=== PATIENT | female | born 1965 | race Caucasian/White ===

== ENCOUNTER 2016-04-06 11:52 | Day surgery (SDC) | payer OTHER ==
[~2016-04-06] VITALS: Ht 180.3 cm; Wt 125.0 kg
[~2016-04-06 11:52] MED LIST: BPR100TCR PO; HYDR25TA4 PO; IBUP200T48 PO; IMI100 PO; METH750T PO; POLY1PAC PO; PRE625 PO; ProAirHFA INH; Sodium Chloride LOK Flush 10 mL Syringe IV PRN; VICODIN 5-3251 EACH PO; fentaNYL-PF 50 mCg/mL 2 mL Inj IVPUSH PRN
[2016-04-06 13:19] VITALS: BP 126/82; PULSE 76; RESP 16; O2SAT 97
[2016-04-06] MEDS ORDERED: HYDR-3090 PO (13:25)
[2016-04-06] MEDS ORDERED: METH-313 PO (13:25)
[2016-04-06] MEDS ORDERED: ESTR1PAT95 TD (13:25)
[2016-04-06] MEDS ORDERED: HYDR25TA4 PO (13:25)
[2016-04-06] MEDS ORDERED: BUPR100T15 PO (13:25)
[2016-04-06] MEDS ORDERED: ALBU8.5H2 INHALATION (13:25)
[2016-04-06] MEDS: 0.9% Sodium Chloride 1,000 ML IV SCH ×2 (13:59→14:28)
--- NOTE | 2016-04-06 14:17 | PCM.ENDEGD ---
EGD Date of Service: Apr 06, 2016 Physician Gregorio Jo MD Indication for Procedure Reflux Post Procedure Dx & Findings: Healing esophageal ulcer and gastritis. Procedure Esophagogastroduodenoscopy PROCEDURE IN DETAIL: The patient was placed in left lateral decubitus position. Bite block was placed. Scope lubricated, placed in posterior pharynx, passed through the cricopharyngeus and esophagus, slowly advanced the entire length of the gastric pouch, pylorus was identified, scope passed through the pylorus and descending portion of duodenum, withdrawn in the antrum, retroflexed upon itself for view of fundus and cardia. Scope was then withdrawn through the oropharynx. Esophagus unremarkable until we saw the Z line at 41 cm. 1 cm area of mild scarring and minimal redness which appears to be a healing ulcer. Biopsy obtained using cold forceps. We advanced into the stomach retroflexion was done. Stomach was easily inflatable and deflated wheezing air. Patient had linear irritations inflammation with redness and edema in the antrum. Sampling biopsies obtained using cold forceps. Duodenum appeared normal with normal villous structures with normal appearing folds. The distal part of the duodenum. Impression Esophageal ulcer status post biopsy Linear gastric irritation consistent with gastritis Recommendation Continue PPI as prescribed Avoid NSAIDs Presedation Assessment Risks and Benefits Informed consent was obtained from the patient after all risks and benefits including but not limited to drug reaction, infection, pain, bleeding, perforation, as well as alternatives were discussed. Patient monitoring Continuous pulse oximetry, cardiac monitoring, blood pressure monitoring, IV access, and oxygen at 2L per nasal cannula. Periprocedural Fentanyl: Fentanyl 150mcg Incrementally Midazolam: Midazolam 7mg Incrementally Diphenhydramine: Diphenhydramine 25 mg IV Complications There were no periprocedural complications identified. Post Procedure Plan Post Procedure Recommendations 1. Restrict activities today. 2. Resume normal activities in the morning. 3. Resume medications. 4. GERD behavioral modification: - Avoid fatty, acidic, spicy, large meals - Do not lie down after meals - Do not eat or drink anything for at least 2 1/2 hours before going to bed at night - Discontinue tobacco and alcohol - Decrease or avoid caffeine - Avoid chocolate and mints - Decrease weight - Avoid aspirin and non steroidal anti-inflammatory agents (NSAID) such as Aleve, Advil, Mobic, Naproxen, Ibuprofen, etc 5. Add proton pump inhibitor. Take 30 minutes before 1st meal of the day. 6. Patient informed of normal post procedure side effects as bloating, drowsiness, blood streaking in the stool 7. If gastric biopsy reveal H.pylori, continue with appropriate treatment 8. If small bowel biopsy reveals celiac, continue with appropriate treatment 9. Please don't hesitate to call me with any questions Gregorio Jo MD Apr 06, 2016 14:17
--- NOTE | 2016-04-06 14:40 | PCM.ENDCOL ---
Colonoscopy Date of Service: Apr 06, 2016 Physician Gregorio Jo MD Indication for Procedure Screening Post Procedure Dx & Findings: Polyp hemorrhoids Procedure Colonoscopy Prep adequate Withdrawal 14 minutes PROCEDURE IN DETAIL: After unremarkable rectal examination Olympus video colonoscope was inserted patient's anal canal was advanced the cecum. Landmarks were identified including the ileocecal valve and appendiceal orifice. Scope was withdrawn systematically. The mucosa of the cecum, ascending, transverse, descending, sigmoid, rectal mucosa lined with whitish, pink, smooth, glistening, normal-appearing mucosa, normal fine branching, underlying vascularity, normal haustra. The patient tolerated procedure and was transported to observation area. In the proximal ascending colon, there was a 2 mm polyp which was resected completely using cold snare. In the rectum retroflexion was done which showed hemorrhoids and a canal was inspected carefully in the way out and mild hemorrhoids noted. Impression Polyp 1 status post complete removal Hemorrhoids Recommendation Repeat colonoscopy 5 years. Presedation Assessment Risks and Benefits Informed consent was obtained from the patient after all risks and benefits including but not limited to drug reaction, infection, pain, bleeding, perforation, as well as alternatives were discussed. Patient monitoring Continuous pulse oximetry, cardiac monitoring, blood pressure monitoring, IV access, and oxygen at 2L per nasal cannula. Periprocedural Fentanyl: Fentanyl 25mcg Midazolam: Midazolam 1mg Incrementally Diphenhydramine: Diphenhydramine 25 mg IV Complications There were no periprocedural complications identified. Post Procedure Plan Post Procedure Recommendations 1. Restrict activities today. 2. Resume normal activities in the morning. 3. Resume medications. 4. Patient informed of normal post procedure side effects as bloating, drowsiness, blood streaking in the stool. 5. average risk CRCS. If colon polyps come back as: -Hyperplastic- can repeat colonoscopy in 10 years -Tubular adenoma- repeat colonoscopy in 5 years -Tubulovillous/villous adenoma- repeat colonoscopy in 3 years -If any dysplasia- return to clinic as soon as possible 6. Please don't hesitate to call me with any questions. Gregorio Jo MD Apr 06, 2016 14:40
[2016-04-06 14:43] VITALS: BP 128/74; PULSE 71; RESP 16; O2SAT 96
[2016-04-06 14:53] VITALS: BP 128/73; PULSE 75; RESP 16; O2SAT 98
[2016-04-06 15:03] VITALS: BP 112/69; PULSE 70; RESP 16; O2SAT 97
--- NOTE | 2016-04-08 10:56 | PATH ---
SURGICAL PATHOLOGY Attending Physician:Gregorio Jo M.D. CASE STATUS: Signed Out PATIENT NAME: SAUD MORALES PID: [id number] : 1965 DATE COLLECTED:04/06/2016 00:00 SPECIMEN: 1: Gastric, Biopsy 2: Esophagus, Biopsy 3: Colon, Biopsy CLINICAL HISTORY: 1). GASTRIC BIOPSY 2). GE JUNCTION BIOPSY 3). DESCENDING COLON POLYP FINAL DIAGNOSIS: 1. Gastric Biopsy: Mild chronic gastritis involving antral mucosa. Negative for evidence of Helicobacter. Negative for intestinal metaplasia. Negative for dysplasia and malignancy. 2. Gastroesophageal Junction Biopsy: Squamous mucosa and gastric cardia-type mucosa negative for specialized metaplasia of White's type esophagus. Negative for dysplasia and malignancy. Eosinophils are not increased. 3. Descending Colon Polyp: Changes consistent with small hyperplastic polyp. ICD10 K29.70 GROSS DESCRIPTION: The specimen is received in three formalin filled containers labeled with the patient's name. 1). The specimen is sublabeled "gastric" and consists of 2 portions of tissue which aggregate to 0.3 x 0.3 x 0.2 CM. The specimen is entirely submitted in cassette 1A. 2). The specimen is sublabeled "GE junction" and consists of a 0.4 x 0.3 x 0.2 CM portion of tissue which is entirely submitted in cassette 2A. 3). The specimen is sublabeled "descending colon polyp" are 2 portions of tissue which aggregate to 0.3 x 0.2 x 0.2 CM. The specimen is entirely submitted in cassettes 3A. 04/07/2016 [facility] ICD-9 CODES: CPT CODES: 1: 19085 2: 41165 3: 29754 Electronically Signed Out Jono Chandra MD [facility] [place] [address] Technical component performed at [facility], [facility] [address], [place], [address]
== END 2016-04-06 23:59 | disposition home or self-care (01) ==
LOC: END 11:52
PROVIDERS: ATTEND Internal Medicine
DX: Z12.11 Encounter for screening for malignant neoplasm of colon (principal); Z86.010 Personal history of colon polyps; K63.5 Polyp of colon; K21.9 Gastro-esophageal reflux disease without esophagitis; K64.9 Unspecified hemorrhoids; K29.50 Unspecified chronic gastritis without bleeding; K22.10 Ulcer of esophagus without bleeding
CPT/HCPCS: 43239; 45385; 88305; 99153; G0500; J1200; J2250; J3010; J7030

== ENCOUNTER 2016-09-28 19:21 | Emergency (ER) | payer OTHER ==
[~2016-09-28] VITALS: Ht 180.3 cm; Wt 129.5 kg
[~2016-09-28 19:21] MED LIST changes: +ALBU8.5H2 INHALATION; -BPR100TCR PO; +BUPR100T15 PO; +ESTR1PAT95 TD; +HYDR-3090 PO; -IBUP200T48 PO; -IMI100 PO; +METH-313 PO; -METH750T PO; -PRE625 PO; -ProAirHFA INH; -Sodium Chloride LOK Flush 10 mL Syringe IV PRN; -VICODIN 5-3251 EACH PO; -fentaNYL-PF 50 mCg/mL 2 mL Inj IVPUSH PRN
[2016-09-28 19:38] VITALS: BP 160/99; PULSE 77; RESP 17; O2SAT 99
--- NOTE | 2016-09-28 21:43 | ED.REPORT ---
HPI-Headache Date of Service Sep 28, 2016 ED Provider: Nito Colindres MD Pt is a generally healthy 51 y/o female w/ a distant hx of migraines presenting to the ED c/o bilateral temporal intermittent ARAMBULA sudden onset 4 days ago. This is the worst headache of her life but at time of interview she is only experiencing a mild dull ache. Her pain seems to be relieved by relaxation. She c/o associated dizziness, neck pain. Pt denies recent trauma, vomiting, fever, chills, any other neurological symptoms. Her headache is not similar to previous migraines. She was seen at Urgent Care and sent here to rule out SAH. Nursing Notes Stated Complaint: HEADACHE Chief Complaint: Headache Nursing Notes Reviewed: Yes Allergies: Coded Allergies: No Known Allergies (Verified , 09/28/16) Scheduled Albuterol HFA (Proair HFA) 8.5 Gm Hfa.aer.ad 2 PUFFS INHALATION Q4H Bupropion (Bupropion) 100 Mg Tablet 100 MG PO DAILY Hydrochlorothiazide (Hydrochlorothiazide) 25 Mg Tablet 25 MG PO DAILY Scheduled PRN Hydrocodone-Acetaminophen 5-300 mg (Hydrocodone-Acetaminophen 5-300 mg) 1 Each Tablet 1 TABLET PO Q4H PRN PRN For Pain PEG 3350-Expunged Drug, Do Not Renew! (MIRALAX-Expunged Drug, Do Not Renew!) 17 Gm/Pkt Packet 17 GM PO DAILY PRN PRN Miscellaneous Medications Estradiol (Estradiol) 0.05 Mg/24 Hour Patch.tdsw 1 EACH TD Methocarbamol (Robaxin-750) 750 Mg Tablet 750 MG PO General Time Seen by MD: 21:32 Chief Complaint Headache Hx Obtained From: Patient Arrived By: Walk-in Sudden in Onset?: Yes Onset Occurred: 4 days ago Symptom Duration: Since onset Location: : Temporal bilateral Quality: Painful Severity: Current: Mild Severity: Maximum: Severe Recent Healthcare: Recent doctor visit Similar Sx Previous: No Past Medical History Past Medical History Distant hx of migraines Past Surgical History Hysterectomy Smoking History Never Smoker Ambulatory Status Independent Review of Systems Constitutional: Denies: Chills, Fever GI: Denies: Vomiting Musculoskeletal: Reports: Neck pain Neurologic: Reports: Dizziness, Headache, Denies: Abnormal movement, Bladder dysfunction, Bowel dysfunction, Change LOC , Confusion, Focal weakness, Lightheaded, Numbness, Problem walking, Seizure, Shaking, Slurred speech, Spinning sensation, Syncope, Unable to speak, Vision change, Weakness Complete sys rev & neg: except as marked. Physical Exam Initial Vital Signs Vital Signs (First) Date Time Temp Pulse Resp B/P Pulse Ox O2 Delivery O2 Flow Rate FiO2 09/28/16 19:38 36.6 77 17 160/99 99 Room Air Initial VS: Reviewed, Vital signs abnormal ENT: Mucous membranes moist, Conjunctiva normal, No scleral icterus Respiratory: Breath sounds normal, Clear to auscultation, No respiratory distress Cardiovascular: Regular rate & rhythm, Heart sounds normal, Intact distal pulses Abdomen / GI: Soft, Non-tender Extremities: Vascular intact, Neuro intact, No swelling, No tenderness Skin: Warm, Dry, No cyanosis Psychiatric: Mood/affect normal, Behavior normal, Normal thought content General/Constitutional: Awake, Alert, No acute distress, Well appearing, Cooperative, Not toxic appearing Appearance / Presentation: Positive: Obese Head / Eyes: Atraumatic, Normocephalic, PERRL, EOMI Neck: Atraumatic, Supple, No meningismus, Full range of motion Meningeal Signs / ROM: Negative: Brudzinski's positive, Kernig's positive, Nuchal rigidity present Neurologic: Oriented X3, Speech NL, No motor deficits, No sensory deficits, CN II - XII intact, Cerebellar NL, Memory NL Re-Eval/Medical Decision Med Decision/Clinical Course 51-year-old female presenting with headache 4 days. Fluctuating intensity. History of migraines in the past but none for 12 years. No other associated symptoms. She has no signs of meningitis. No meningeal signs symptoms. Vital signs are stable. No focal neuro deficits. Her CT scan shows no acute pathology. Do not suspect meningitis as above. No focal neuro deficits. Her pain improved with Toradol. Likely with migraine headache. No meningeal signs or symptoms, normal CT head and resolution with Toradol did not seem indication for lumbar puncture at this time. Patient was discharged home with return precautions if any new or worsening headache, visual changes, weakness numbness tingling, any other new or worsening symptoms. Re-Evaluation/Progress : Time of Eval: 22:49 Re-Evaluation/Progress Note: Pt rechecked. Informed pt of plan for treatment. Pt understands and agrees with plan for treatment. F/U instructions and RTER warnings given. All questions addressed. Counseled Regarding: Diagnosis, Lab results, Need for follow-up, When/why to return to ED Discharge & Departure Impression: Primary Impression: Headache Headache type: unspecified Headache chronicity pattern: acute headache Intractability: not intractable Qualified Code: R51 - Headache Disposition: Home Discharge Condition All VS Reviewed: Yes Condition: Improved Patient Instructions: Acute Headache (ED) Additional Instructions: The CT scan today was normal. There was no sign of bleeding in the brain. The cause of your headache is uncertain but is not immediately dangerous. Your exam is reassuring. Return to the emergency department if you experience persistent severe headache , vomiting, fever, severe neck stiffness, confusion or altered mental status, vision changes, speech changes, or for other concerning signs or symptoms. Follow-up with your primary care doctor in 2-3 days for a recheck. Referrals: Teresa Baumann MD (PCP) Yann Attestation Portions of this note were transcribed by Nitin Baltazar. I, Dr. Colindres personally performed the history, physical exam and medical decision-making; I reviewed and confirmed the accuracy of the information in the transcribed note. Signed by Yann Lira, 09/28/16 - 0 copies to: Teresa Baumann MD, Ben M MD Sep 28, 2016 21:43 NITIN BALTAZAR Sep 28, 2016 21:44
[2016-09-28 23:38] VITALS: BP 118/75; PULSE 66; RESP 16; O2SAT 96
[2016-09-28 23:55] VITALS: BP 118/75; PULSE 66; RESP 16; O2SAT 96
--- NOTE | 2016-09-29 07:20 | DRSVH ---
PROCEDURE: CT BRAIN WITHOUT CONTRAST ([id number]) INDICATIONS: headache TECHNIQUE: Noncontrast 4.5 mm thick angled axial sections acquired from the foramen magnum to the vertex, with c oronal reformats. COMPARISON: None. FINDINGS: Image quality: Good CSF spaces: Basal cisterns are patent. No extra-axial fluid collections. Ventricles are normal in size and shape. Brain: No midline shift. No intracranial masses or hemorrhage. Pollock-white matter interface is norm al. Skull and face: Calvarium and visualized facial bones are intact, without suspicious lesions. Sinuses: Visualized sinuses and mastoids are clear except for mild mucosal thickening of the ethmoid sinuses on the right.. IMPRESSION: No acute intracranial abnormality. Mild mucosal thickening of ethmoid sinuses on the right. Dictated by: Domingo Miller M.D. on 09/29/2016 at 7:16 this report corresponds to the findings of fercho madrigal preliminary NSR report. Approved by: Domingo Miller M.D. on 09/29/2016 at 7:18
== END 2016-09-28 23:56 | disposition home or self-care (01) ==
LOC: SED 19:21
DX: R51 Headache (principal); R42 Dizziness and giddiness; M54.2 Cervicalgia
CPT/HCPCS: 70450; 96372; 99284; G0463; J1885